=== PATIENT | male | born 1960 | race Caucasian/White ===

== ENCOUNTER 2023-10-11 11:54 | Observation (INO) ==
[2023-10-11] MEDS: NOZIN NASAL SANITIZER TP ONE (12:25)
[2023-10-11] MEDS: NS 1,000 ML IV 1,000 ML ONE (12:30)
[2023-10-11] MEDS: NS 100 ML IV 100 ML ONE ×2 (12:58→21:33)
[2023-10-11] MEDS: ANCEF VIAL 1 GRAM ONE (12:58)
[2023-10-11 13:01] VITALS: BMI 36.1
[2023-10-11] MEDS: FENTANYL VIAL INJ 100 mcg ONE ×2 (13:09→14:18)
[2023-10-11] MEDS: DIPRIVAN VIAL 20 ML ONE ×3 (13:09→14:48)
[2023-10-11] MEDS: BETADINE SOLN ONE (13:09)
[2023-10-11] MEDS: ZOFRAN INJ 4 MG VIAL ONE (13:09)
[2023-10-11] MEDS: PEPCID 20 MG VIAL ONE (13:09)
[2023-10-11] MEDS: VERSED ONE (13:09)
[2023-10-11] MEDS: KETAMINE 50 MG/5 ML-NACL SYRNG ONE (13:09)
[2023-10-11] MEDS: TOBRAMYCIN SULFATE ONE (13:28)
[2023-10-11] MEDS: VANCOMYCIN HCL ONE (13:28)
[2023-10-11] MEDS: ProvayBLUE 0.5% ONE (13:28)
[2023-10-11] MEDS: MARCAINE 0.25% INJ ONE (13:28)
[2023-10-11] MEDS ORDERED: TYLENOL 325 MG TAB PO PRN (15:58)
[2023-10-11] MEDS ORDERED: ZOFRAN INJ 4 MG VIAL IVP PRN (15:58)
[2023-10-11] MEDS ORDERED: PERCOCET TAB 5/325 MG PO PRN (15:58)
[2023-10-11] MEDS: NOZIN NASAL SANITIZER TP SCH (21:32)
[2023-10-11] MEDS: COLACE CAP 100 MG PO SCH (21:32)
[2023-10-11] MEDS: ANCEF VIAL 1 GRAM IVP SCH (22:00)
[2023-10-12] MEDS ORDERED: NovoLIN R (or HumuLIN R) SUBCUT PRN (01:48)
[2023-10-12 04:13] VITALS: PULSE 76
[2023-10-12] MEDS: NS 100 ML IV 100 ML ONE (05:30)
[2023-10-12 06:26] LABS: BLOOD UREA NITROGEN 12 mg/dL (7-18); CALCIUM 8.3 mg/dL (8.5-10.1); CARBON DIOXIDE 25.4 mmol/L (21-32); CHLORIDE 103 mmol/L (98-107); CREATININE 0.89 mg/dL (0.70-1.30); GLUCOSE 77 mg/dL (65-99); POTASSIUM 3.8 mmol/L (3.5-5.1); SODIUM 141 mmol/L (136-145); eGFR NON BLACK RACES > 60 (>60)
--- NOTE | 2023-10-12 06:33 | NOTE.SOAP ---
Soap Note Note for Day of Date of Exam: 10/12/23 Subjective Data Subjective Data: Patient is POD1 s/p wound debridement, insertion of abx cement and wound VAC, application of multiplane External Fixator. He is doing great this am and becky any pain or symptoms. He states the challenge is walking with the external fixator and will need to get use to it. Objective Data Objective Data: Wound VAC intact with a good seal Pin sites are clean, no active bleeding or drainage Neurovascular status intact Assessment Assessment: 62 year old male with DM w/ neuropathy who underwent a debridement, insertion of abx cement, wound vac and external fixator of the LLE (DOS:10/11/23) Plan Plan: Patient seen this am, explained the post op period. We are currently treating the infection of his left foot. Once the infection is resolved, he will be returning for a flap to close the wound. He is to be PWB at 10% to the LLE with assistive device. He is ready to go home, we would like for him to work with physical therapy prior to discharge. Please dispense all Rx and instructions in chart prior to discharge as well as his box of Wound VAC supplies.
[2023-10-12] MEDS ORDERED: CONSULT PHARMACY - POTASSIUM & MAGNESIUM XX SCH (07:00)
[2023-10-12] MEDS: LOVENOX INJ 40 MG SYR SC SCH (08:56)
[2023-10-12] MEDS: K-DUR TAB 20 MEQ PO SCH (08:57)
[2023-10-12 10:12] VITALS: BP 160/75; RESP 18; TEMP 97.7; O2SAT 91
[2023-10-12] MEDS ORDERED: SNACK - Diabetic Appropriate PO SCH (20:00)
== END 2023-10-12 12:50 | disposition home or self-care (01) ==
LOC: SURG1 11:54 → MED/SURG 11:54 → EDUNIT# 16:00
PROVIDERS: ADMIT Obstetrics & Gynecology Obstetrics; ATTEND Obstetrics & Gynecology Obstetrics
PROC: DEBRIDE (2023-10-11 13:30)
PROC: APEXFIX (2023-10-11 13:30)
DX: M86.172 Other acute osteomyelitis, left ankle and foot; E11.42 Type 2 diabetes mellitus with diabetic polyneuropathy; B96.89 Other specified bacterial agents as the cause of diseases classified elsewhere; L89.894 Pressure ulcer of other site, stage 4; I10 Essential (primary) hypertension; E11.65 Type 2 diabetes mellitus with hyperglycemia; X58.XXXA Exposure to other specified factors, initial encounter; S82.892A Other fracture of left lower leg, initial encounter for closed fracture